=== PATIENT | male | born 2000 | race Caucasian/White ===

== ENCOUNTER 2021-01-21 12:34 | Emergency (ER) | payer OTHER ==
[~2021-01-21] VITALS: Ht 185.4 cm; Wt 110.2 kg
[2021-01-21 12:50] VITALS: BP 133/70
[2021-01-21 14:28] LABS: ABSOLUTE NEUTROPHILS 7.6 thou/uL (1.4-8.2); BASOPHILS 0.2 % (0.0-2.0); EOSINOPHILS 0.1 % (0.0-3.0); HEMATOCRIT 52.2 % (42.0-52.0); HEMOGLOBIN 18.1 gm/dL (14.0-18.0); LYMPHOCYTES 14.4 % (24.0-44.0); MCH 30.3 pg (26.0-34.0); MCHC 34.8 g/dL (28.0-37.0); MCV 87.2 fL (80.0-100.0); MONOCYTES 4.7 % (1.0-8.0); PLATELET COUNT 390 thou/uL (150-400); POLYS 80.6 % (36.0-66.0); RBC 5.98 mil/uL (4.50-6.00); RDW 12.7 % (10.5-14.5); WBC 9.4 thou/uL (4.0-11.0)
[2021-01-21 14:37] LABS: CREATININE 1.8 mg/dL (0.7-1.3); POTASSIUM 4.1 mmol/L (3.5-5.1)
[2021-01-21 14:43] LABS: ALBUMIN 3.7 g/dL (3.4-5.0); TOTAL BILIRUBIN 2.1 mg/dL (0.2-1.0)
[2021-01-21 16:32] LABS: URINE BILIRUBIN NEGATIVE (Negative); URINE BLOOD NEGATIVE (Negative); URINE CLARITY CLEAR; URINE COLOR YELLOW; URINE GLUCOSE-RANDOM* 1+ (Negative); URINE KETONES NEGATIVE (Negative); URINE LEUKOCYTES-REFLEX NEGATIVE (Negative); URINE NITRITE-REFLEX NEGATIVE (Negative); URINE PROTEIN (DIPSTICK) NEGATIVE (Negative)
[2021-01-21 17:32] LABS: CALCIUM 8.2 mg/dL (8.5-10.1); CREATININE 1.4 mg/dL (0.7-1.3); POTASSIUM 4.9 mmol/L (3.5-5.1)
[2021-01-21] MEDS ORDERED: PREDNISONE 10 M10 MG PO (17:39)
== END 2021-01-21 18:38 | disposition home or self-care (01) ==
LOC: ER 12:34
PROVIDERS: Nurse Practitioner Family
DX: L50.0 Allergic urticaria (principal); E80.6 Other disorders of bilirubin metabolism; R73.9 Hyperglycemia, unspecified; N28.9 Disorder of kidney and ureter, unspecified; F17.200 Nicotine dependence, unspecified, uncomplicated; F12.90 Cannabis use, unspecified, uncomplicated; Z90.89 Acquired absence of other organs; Z98.890 Other specified postprocedural states

== ENCOUNTER 2021-01-23 10:37 | Emergency (ER) | payer OTHER ==
[~2021-01-23] VITALS: Ht 188 cm; Wt 106.6 kg
[~2021-01-23 10:37] MED LIST: PREDNISONE 10 M10 MG PO
[2021-01-23 11:54] LABS: HEMATOCRIT 41.3 % (42.0-52.0); MCH 29.5 pg (26.0-34.0); MCHC 33.6 g/dL (28.0-37.0); MCV 87.7 fL (80.0-100.0); PLATELET COUNT 410 thou/uL (150-400); RDW 12.9 % (10.5-14.5); WBC 11.2 thou/uL (4.0-11.0)
[2021-01-23 11:59] LABS: HEMOGLOBIN 13.9 gm/dL (14.0-18.0)
[2021-01-23 12:04] LABS: CALCIUM 8.4 mg/dL (8.5-10.1); CREATININE 1.2 mg/dL (0.7-1.3); POTASSIUM 4.2 mmol/L (3.5-5.1)
[2021-01-23] MEDS ORDERED: EPIPEN 2-P0.3 MG/0.3 IM (12:28)
[2021-01-23 13:04] VITALS: BP 135/93
[2021-01-23 13:44] LABS: ABSOLUTE NEUTROPHILS 6.8 thou/uL (1.4-8.2); ATYPICAL LYMPHS 2 %
== END 2021-01-23 13:05 | disposition home or self-care (01) ==
LOC: ER 10:37
PROVIDERS: Emergency Medicine
DX: T78.40XA Allergy, unspecified, initial encounter (principal); Z90.89 Acquired absence of other organs; X58.XXXA Exposure to other specified factors, initial encounter